=== PATIENT | female | born 1945 | race Hispanic/Latino ===

== ENCOUNTER 2020-02-24 17:28 | Emergency (ER) | payer MEDICARE ==
[2020-02-24] MEDS ORDERED: Adacel (T-DAP) 0.5 ML SYRINGE ONE (17:58)
[2020-02-24] MEDS ORDERED: Amoxicillin/Potassium Clav 875 MG TAB ONE (18:09)
[2020-02-24] MEDS ORDERED: Bacitracin 1 PK ONE (18:09)
[2020-02-24] MEDS ORDERED: Rabies Vaccine Human 2.5 UNITS VIAL ONE (19:14)
== END 2020-02-24 22:35 | disposition home or self-care (01) ==
LOC: NAV ERS 17:28
DX: S41.151A Open bite of right upper arm, initial encounter (principal); S60.512A Abrasion of left hand, initial encounter; I11.0 Hypertensive heart disease with heart failure; I50.9 Heart failure, unspecified; E11.9 Type 2 diabetes mellitus without complications; Z79.01 Long term (current) use of anticoagulants; Z79.899 Other long term (current) drug therapy; Z79.84 Long term (current) use of oral hypoglycemic drugs; W55.01XA Bitten by cat, initial encounter
CPT/HCPCS: 90471; 90675; 90715